=== PATIENT | female | born 1935 | race Caucasian/White ===

== ENCOUNTER 2020-10-14 17:44 | Inpatient (IN) | payer MEDICARE ==
[~2020-10-14] VITALS: Ht 172.7 cm; Wt 74.5 kg
[~2020-10-14 17:44] MED LIST: AMBIEN 5MG TABLE5 MG PO; ATARAX 25MG25 MG/TAB PO; CAPSAICIN0.025% TP; ELIQUIS 2.5 PO; LOPRESSOR 225 MG/TAB PO; LYRICA 150MG C150 MG PO; MELATIN 3 MG-11 TAB PO; NORCO 325 MG-51 TAB PO; PROTONIX 40MG T40 MG PO; RYTHMOL225 MG PO; VICTOZA6 MG/ML SQ; ZYLOPRIM 300MG300 MG PO
[2020-10-14 18:38] LABS: MEAN CELL VOLUME 92 fl (80.0-100.0); MEAN CORPUSCULAR HGB CONC 30 g/dl (33.0-37.0); MEAN PLATELET VOLUME 9.5 fl (7.4-10.4); PLATELET COUNT 177 K/mm3 (130-400); RED BLOOD COUNT 2.87 M/mm3 (4.10-5.30); REDCELL DISTRIBUTION WIDTH-CV 20.1 % (11.5-14.5)
[2020-10-14 18:44] LABS: HEMATOCRIT 26.3 % (37.0-47.0); HEMOGLOBIN 7.9 g/dl (12.5-16.0); MEAN CORPUSCULAR HEMOGLOBIN 28 pg (27.0-31.0)
[2020-10-14 18:53] LABS: ALBUMIN 2.6 gm/dL (3.5-5.0); BILIRUBIN,TOTAL 0.5 mg/dL (0.0-1.0); CALCIUM 10.1 mg/dL (8.4-10.2); CREATININE, serum 1.64 (0.52-1.25); POTASSIUM 4.2 mmol/L (3.4-5.0); TOTAL PROTEIN 5.2 gm/dL (6.4-8.2)
[2020-10-14 19:03] LABS: TROPONIN-I 0.014 ng/mL (0.000-0.035)
[2020-10-14 19:04] LABS: C-REACTIVE PROTEIN 23.7 mg/dL (0.0-0.9)
[2020-10-14 19:29] LABS: ANISOCYTOSIS 2+; BAND 1 % (0-10); EOSINOPHIL 4 % (0-4); HYPOCHROMIA 3+; LYMPHOCYTE 5 % (20.0-51.0); NEUTROPHILS 78 % (42.0-75.2); NUCLEATED RED BLOOD CELL 2 (0-6); PLATELET ESTIMATE NORMAL (NORMAL)
[2020-10-14 19:30] LABS: OVALOCYTES 1+
[2020-10-14 21:00] VITALS: BP 119/59; PULSE 80; TEMP 98.2
--- NOTE | 2020-10-14 21:00 | NUR ---
Received patient from ED. She is alert and oriented. She is on O2 at 5lpm via high flow nasal cannula. Assisted her to bedside commode to urinate. She has a PICC on right upper arm, both are flushing well. She has edema on her bilateral lower extremities. She has generalized scabs. On high fall risk. Bed alarm on. Call light within reach.
[2020-10-14 21:37] LABS: COLLECTION METHOD CLEAN CATCH
[2020-10-14 21:46] LABS: MUCOUS Present /lpf; PH 5 (5-8); URINE APPEARANCE Clear; URINE BACTERIA Rare /hpf; URINE BILIRUBIN Negative (NEGATIVE); URINE BLOOD Negative (NEGATIVE); URINE COLOR Yellow; URINE GLUCOSE Negative (NEGATIVE); URINE KETONE Negative (NEGATIVE); URINE LEUKOCYTE ESTERASE Trace (NEGATIVE); URINE NITRATE Negative (NEGATIVE); URINE PROTEIN(semi-quant) 1+ (NEGATIVE); URINE RBC 0-2 /hpf; URINE UROBILINOGEN Negative (NEGATIVE)
[2020-10-14] MEDS ORDERED: TYLENOL 325MG325 MG PO (22:39)
[2020-10-14] MEDS ORDERED: MILK OF MA400 MG/52 PO (22:42)
[2020-10-14] MEDS ORDERED: AMBIEN 5MG TABLE5 MG PO (22:45)
[2020-10-14] MEDS ORDERED: NYAMYC100000 U/G TP (22:51)
[2020-10-14] MEDS ORDERED: BACTRIM 400 MG-1 TAB PO (22:56)
[2020-10-14] MEDS ORDERED: LASIX 20MG TABL20 MG PO (22:59)
--- NOTE | 2020-10-14 23:03 | NUR ---
Informed Rochelle MARROQUIN via phone call that Med rec has beed updated and that she has DNR directive according to the records from [facility].
[2020-10-14 23:56] LABS: ARTERIAL BLD GAS O2 SATURATION 18.8 % (92-100); ARTERIAL BLD GAS TCO2 CT 29.5; ARTERIAL BLOOD GAS BASE EXCESS 2.2 (-2-2); ARTERIAL BLOOD GAS HCO3 27.9 meq/L (22-26); ARTERIAL BLOOD GAS PCO2 49.8 mmHg (35-45); ARTERIAL BLOOD GAS pH 7.37 (7.35-7.45)
[2020-10-14 23:58] LABS: ARTERIAL BLOOD GAS PO2 17.8 mmHg (80-100)
[2020-10-15] VITALS (11 sets, daily range): BP systolic 94–125; BP diastolic 25–72; PULSE 65–96; TEMP 97.4–98.5
--- NOTE | 2020-10-15 00:20 | NUR ---
Patient refuses SCD.
--- NOTE | 2020-10-15 05:46 | NUR ---
Patient woke up couple times saying she needs to get out of here and she would remove her nasal cannula and gown. Informed patient that she is in the hospital right now and she says she knows. Reoriented patient and she is cooperative and would go back to bed and sleep. She would use her call light if she wants to use the bedside commode. She denies pain. Still with pruritus. Bed alarm on.
[2020-10-15 06:59] LABS: BASO % 0.3 % (0.0-2.0); EOS # 0.3 (0.0-0.7); EOS % 5.7 % (0-4.0); GRAN % 69.4 % (42.2-75.2); LYMPH # 0.5 (1.2-3.4); LYMPH % 8.1 % (20.0-51.0); MEAN CELL VOLUME 93 fl (80.0-100.0); MEAN CORPUSCULAR HGB CONC 30 g/dl (33.0-37.0); MONO # 0.9 (0.1-0.6); MONO % 15.1 % (1.7-9.3); PLATELET COUNT 132 K/mm3 (130-400); RED BLOOD COUNT 2.53 M/mm3 (4.10-5.30)
[2020-10-15 07:01] LABS: HEMATOCRIT 23.4 % (37.0-47.0); HEMOGLOBIN 6.9 g/dl (12.5-16.0); MEAN CORPUSCULAR HEMOGLOBIN 27 pg (27.0-31.0)
[2020-10-15 07:06] LABS: ALBUMIN 2.2 gm/dL (3.5-5.0); BILIRUBIN,TOTAL 0.6 mg/dL (0.0-1.0); CALCIUM 9.4 mg/dL (8.4-10.2); CREATININE, serum 1.57 (0.52-1.25); TOTAL PROTEIN 4.6 gm/dL (6.4-8.2)
--- NOTE | 2020-10-15 13:00 | NUR ---
First visit from the aircraft avionics technician. Middle School Coach prayed with patient and daughter. No other needs right now.
[2020-10-15 18:02] LABS: HEMATOCRIT 21.9 % (37.0-47.0); HEMOGLOBIN 6.5 g/dl (12.5-16.0)
--- NOTE | 2020-10-15 21:45 | NUR ---
Talked with Audrey MARROQUIN about HGB 6.5, irradiated blood will be here sometime in the morning, B/P 120,s/ 30,s
[2020-10-16] VITALS (9 sets, daily range): BP systolic 110–130; BP diastolic 28–42; PULSE 62–79; TEMP 97.4–98.6
--- NOTE | 2020-10-16 04:20 | NUR ---
Frequent rounding done on pt. Resting w eyes closed, resp even and unlabored overnight. C/O itchy and pain, medication prn. NPO for EGD this am. Monitoring hemoglobin of 6.5. Irradatated blood will be available this am and given. Daughter called and given update last night. POC discussed with pt. Consent signed, preop check list. PICC right upper arm, flushed with good blood return. Pain tx norco.
[2020-10-16 07:18] LABS: MEAN CELL VOLUME 93 fl (80.0-100.0); MEAN CORPUSCULAR HGB CONC 30 g/dl (33.0-37.0); MEAN PLATELET VOLUME 11.1 fl (7.4-10.4); PLATELET COUNT 149 K/mm3 (130-400); RED BLOOD COUNT 2.47 M/mm3 (4.10-5.30); REDCELL DISTRIBUTION WIDTH-CV 20.1 % (11.5-14.5)
[2020-10-16 07:20] LABS: CREATININE, serum 1.6 (0.52-1.25); POTASSIUM 4.3 mmol/L (3.4-5.0)
[2020-10-16 07:25] LABS: HEMOGLOBIN 6.9 g/dl (12.5-16.0); MEAN CORPUSCULAR HEMOGLOBIN 28 pg (27.0-31.0)
[2020-10-16 08:05] LABS: ANISOCYTOSIS 3+; EOSINOPHIL 10 % (0-4); HYPOCHROMIA 3+; LYMPHOCYTE 4 % (20.0-51.0); METAMYELOCYTE 1 % (0-0); NEUTROPHILS 78 % (42.0-75.2); NUCLEATED RED BLOOD CELL 1 (0-6); OVALOCYTES 1+; PLATELET ESTIMATE NORMAL (NORMAL); POIKILOCYTOSIS 1+
--- NOTE | 2020-10-16 09:16 | NUR ---
Computer Architect met with the patient's daughter, Em #[phone] to complete intake. The patient lives in [place] with her . The patient was admitted from a skilled stay at [facility]. The plan at this time is to return there at discharge. The patient is dependent on them for ADLs. The patient has walker, wheelchair and oxygen. The patient's PCP is Dr. Martinez and patient receives medications from [facility]. The patient does not have advanced directives in the EMR but states they are complete. Em states that [facility] has a copy. COLLIN contacted [facility]issa regarding DPOA-[facility] and faxed updates. COLLIN collaborted the above information with the patient's nurse.
--- NOTE | 2020-10-16 11:03 | NUR ---
Retail Account Executive attended clinical rounds with the team. Palliative Care Consult. There is to be family meeting at 1500 this day.
--- NOTE | 2020-10-16 12:16 | NUR ---
Follow up visit from the commodity management specialist. prayed with patient and her daughter. No other needs right now.
--- NOTE | 2020-10-16 14:09 | NUR ---
Palliative care nurse visited with pt alone at bedside. She reports she is going to have to make a difficult decision. She wants to fight this cancer and do the chemotherapy but is aware that her new pneumonia will delay any chemotherapy administration until she has recovered. She is also aware that her cancer is advanced and a cure is not possible. Her fatigue is evident as she falls asleep mid sentence several times during our conversation. She reports that she wants to have more time with her grandchildren and enjoys reading most of her days. Family meeting is scheduled for 3pm.
--- NOTE | 2020-10-16 15:45 | NUR ---
Family meeting held with by phone and daughter Em in the room, patient, Dr Neal, Charmaine, CORRECTIONS OFFICER and Kat Evans RN at bedside. Dr Neal reviewed the patient's situation and pt did ask about going to hospice as her prognosis is poor and we are unsure if she will ever regain enough stamina to tolerate another dose of chemotherapy. Pt has agreed to going to [facility] and we will work to get her there as soon as possible tomorrow. A comfort quilt with explanation was also provided to her and her daughter.
--- NOTE | 2020-10-16 15:47 | NUR ---
Builder'S Labourer attended family meeting for the patient. Present were Kat Duvall, the patient's nurse, the patient's daughter Em, and the patient's was on speaker phone. After discussing the patient's prognosis it was decided to go on hospice. The patient chose the [facility]. Family was in agreeance. Referral faxed. COLLIN contacted the [place] with the [facility]. Nel reports there is availablity. The team will review the referral then she will inform this SW on acceptance. Awaiting response.
--- NOTE | 2020-10-16 23:53 | NUR ---
Pt comfort care. Daughter at bedside today until visiting hours over. Pt continues to have pain and itching. Roxanal given per order prn. Bed alarm on. Awaiting placement with [facility] possibly tomorrow. Daughter aware of plan of care and request to keep her mom comfortable. Drowsy w pain medicaition but appears comfortable. Resp cont to be even and unlabored.
--- NOTE | 2020-10-17 05:30 | NUR ---
pt resting this morning. Was up often last night itching but was confused and found sitting up on edge of bed, bed alarm hightened. Needs met.
--- NOTE | 2020-10-17 08:20 | NUR ---
Assessment complete. Patient sitting up about to get to recliner with students at thsi time. She is alert and partially oriented to self and the month. She is actively itchy, will provide PRN attarax when able. Patient denies pain or disocmfort at this time. Dressing on coccyx stage one ulcer was changed at thsi time, patient tolerated well. Will continue to montior. Fall precautions are in place. Call light is in reach.
[2020-10-17] MEDS ORDERED: IPRATROPIUM BROM3 M1 IH (09:11)
[2020-10-17] MEDS ORDERED: ATIVAN 1MG T1 MG/TAB PO (09:13)
[2020-10-17] MEDS ORDERED: ROXANOL 20MG20 MG/ML SL (09:13)
[2020-10-17] MEDS ORDERED: ZOFRAN ODT4 MG PO (09:14)
[2020-10-17] MEDS ORDERED: SYSTANE 0.3-0.1 EACH OP (09:15)
[2020-10-17] MEDS ORDERED: TRANSDERM-0.5 MG/21 TD (09:15)
[2020-10-17] MEDS ORDERED: DULCOLAX S10 MG/SUPP RC (09:15)
--- NOTE | 2020-10-17 09:41 | NUR ---
Nel with the [facility] reports they can accept the patient. Discharge is today, 10/17. Transport by [facility] at 1000. The team and family were in agreeance. Discharge orders faxed. Scripts faxed to [facility]. There are no additional needs.
--- NOTE | 2020-10-17 10:10 | NUR ---
Patient left the floor at this time. Belongings were sent with patient. She was confused at time of transport, i attempted to reorient as she was leaving. She was not upset. Paperwork sent with EMS. O2 set up with EMS. No further questions or concerns.
== END 2020-10-17 10:50 | disposition hospice, home (50) | DRG 291 ==
LOC: COL.ER 17:44 → MEDICAL 19:23
PROVIDERS: Internal Medicine Gastroenterology; Nurse Practitioner Primary Care; Student in an Organized Health Care Education/Training Program; ADMIT Hospitalist
PROC: 0DB78ZX Excision of Stomach, Pylorus, Via Natural or Artificial Opening Endoscopic, Diagnostic (ICD-10-PCS; principal; 2020-10-16 07:30)
DX: I50.33 Acute on chronic diastolic (congestive) heart failure (principal); J18.9 Pneumonia, unspecified organism; J96.21 Acute and chronic respiratory failure with hypoxia; E87.2 Acidosis; N17.9 Acute kidney failure, unspecified; C83.30 Diffuse large B-cell lymphoma, unspecified site; C22.0 Liver cell carcinoma; K21.9 Gastro-esophageal reflux disease without esophagitis; G47.00 Insomnia, unspecified; I48.91 Unspecified atrial fibrillation; R53.81 Other malaise; Z20.822 Contact with and (suspected) exposure to COVID-19; E83.52 Hypercalcemia; D64.9 Anemia, unspecified; Z66 Do not resuscitate; K25.7 Chronic gastric ulcer without hemorrhage or perforation; T45.1X5A Adverse effect of antineoplastic and immunosuppressive drugs, initial encounter; Z51.5 Encounter for palliative care; Z89.431 Acquired absence of right foot; Z89.422 Acquired absence of other left toe(s); Z79.891 Long term (current) use of opiate analgesic; Z87.891 Personal history of nicotine dependence
CPT/HCPCS: 99223-AI; 99232-AI; 99233-AI; 99239; J1956; J2060; J2704; P9040; Q9967